=== PATIENT | male | born 1990 | race Caucasian/White ===

== ENCOUNTER 2017-10-20 08:39 | Emergency (ER) | payer BC ==
[2017-10-20 08:49] VITALS: BP 114/77; PULSE 65; RESP 18; TEMP 98.1; O2SAT 98
--- NOTE | 2017-10-20 09:09 | C.PDOC ---
History Of Present Illness 27yr old male accompanied by dad, presents to the ER with complaints of right knee pain. Patient states he fell 1 month ago and landed on both knees, initially the right knee hurt but started to improve and continued to walk on it. Patient states 3 days ago he slipped on ice, twisted it and has had pain and has been limping. Otherwise, patient denies fever, chills, back pain, leg pain, weakness or numbness. Time Seen by Provider: 10/20/17 09:04 Chief Complaint (Nursing): Lower Extremity Problem/Injury History Per: Patient History/Exam Limitations: no limitations Onset/Duration Of Symptoms: Days Past Medical History Reviewed: Historical Data, Nursing Documentation, Vital Signs Vital Signs: Last Vital Signs Temp 98.1 F 10/20/17 08:44 Pulse 65 10/20/17 08:44 Resp 18 10/20/17 08:44 BP 114/77 10/20/17 08:44 Pulse Ox 98 10/20/17 15:15 Surgical History: Tonsillectomy Family History: States: No Known Family Hx - Social History Hx Alcohol Use: No Hx Substance Use: No - Immunization History Hx Tetanus Toxoid Vaccination: No Hx Influenza Vaccination: No Hx Pneumococcal Vaccination: No Review Of Systems Except As Marked, All Systems Reviewed And Found Negative. Constitutional: Negative for: Fever, Chills Musculoskeletal: Positive for: Other ((+) Right knee pain). Negative for: Back Pain, Leg Pain Neurological: Negative for: Weakness, Numbness Physical Exam - Physical Exam Appears: Non-toxic, No Acute Distress Skin: Warm, Dry Head: Atraumatic, Normacephalic Oral Mucosa: Moist Extremity: No Calf Tenderness, Capillary Refill (<2 secs), Other (Right Knee - Ballottement of the patella. Warm to touch. No redness. No swelling. No laxity.) Pulses: Left Dorsalis Pedis: Normal, Right Dorsalis Pedis: Normal Neurological/Psych: Oriented x3, Normal Speech, Normal Motor, Normal Sensation ED Course And Treatment O2 Sat by Pulse Oximetry: 98 (RA) Pulse Ox Interpretation: Normal - Other Rad X-Ray - Right Knee X-Ray: Viewed By Me, Read By Radiologist Interpretation: PROCEDURE: Right Knee Radiographs. HISTORY: fall 1 month ago , pain, swelling. COMPARISON: None. FINDINGS: BONES: Normal. No fracture. JOINTS: Normal. No osteoarthritis. JOINT EFFUSION: Small effusion possible. OTHER FINDINGS: None. IMPRESSION: No fracture or lytic lesion. No significant arthritis. Possible small effusion Medical Decision Making Medical Decision Making: PLAN: * X-Ray - Right Knee * Motrin PO Disposition Counseled Patient/Family Regarding: Need For Followup, Rx Given - Disposition Referrals: Michele Chavez III, MD [Staff Provider] - Disposition: HOME/ ROUTINE Disposition Time: 09:55 Condition: STABLE Prescriptions: Ibuprofen [Motrin] 600 mg PO TID #15 tab Instructions: [facility] (ED) Forms: General Discharge Instructions, [facility] (Fijian), Work Excuse - Clinical Impression Clinical Impression: Joint pain, Joint swelling - Scribe Statement The provider has reviewed the documentation as recorded by the [place]ot[place] Nieves Provider Attestation: All medical record entries made by the [place] were at my direction and personally dictated by me. I have reviewed the chart and agree that the record accurately reflects my personal performance of the history, physical exam, medical decision making, and the department course for this patient. I have also personally directed, reviewed, and agree with the discharge instructions and disposition.
--- NOTE | 2017-10-20 10:34 | RAD ---
PROCEDURE: Right Knee Radiographs. HISTORY: fall 1 month ago, pain, swelling COMPARISON: None. FINDINGS: BONES: Normal. No fracture. JOINTS: Normal. No osteoarthritis. JOINT EFFUSION: Small effusion possible OTHER FINDINGS: None. IMPRESSION: No fracture or lytic lesion. No significant arthritis. Possible small effusion
== END 2017-10-20 10:05 | disposition home or self-care (01) ==
LOC: C.ER 08:39 → EDBD 08:39 → C.ER 10:05
DX: M25.561 Pain in right knee (principal); M25.461 Effusion, right knee